=== PATIENT | male | born 2000 | race Caucasian/White ===

== ENCOUNTER 2025-08-05 13:45 | Outpatient (RCR) | payer OTHER, SELFPAY | END 2025-08-30 12:43 | disposition home or self-care (01) | PROVIDERS: PCP Student in an Organized Health Care Education/Training Program; Visit Provider Student in an Organized Health Care Education/Training Program | DX: M75.21 Bicipital tendinitis, right shoulder (principal); Z51.89 Encounter for other specified aftercare | CPT/HCPCS: 97110; 97161 ==